=== PATIENT | female | born 1965 | race Caucasian/White ===

== ENCOUNTER → 2024-01-31 07:29 | Outpatient (REF) | payer OTHER, SELFPAY | LOC: MRI 3T 07:29 | PROVIDERS: ATTENDING PHYSICIAN Physician Assistant Surgical; FAMILY PHYSICIAN Family Medicine | DX: S32.000A Wedge compression fracture of unspecified lumbar vertebra, initial encounter for closed fracture (principal); M54.50 Low back pain, unspecified; S39.012A Strain of muscle, fascia and tendon of lower back, initial encounter | CPT/HCPCS: 72148 ==

== ENCOUNTER → 2024-05-08 11:42 | Outpatient (REF) | payer OTHER, SELFPAY | LOC: PAVMRI 11:42 | PROVIDERS: ATTENDING PHYSICIAN Physician Assistant Surgical; FAMILY PHYSICIAN Family Medicine | DX: S32.000A Wedge compression fracture of unspecified lumbar vertebra, initial encounter for closed fracture (principal); M54.50 Low back pain, unspecified | CPT/HCPCS: 72148 ==

== ENCOUNTER → 2024-06-03 07:25 | Outpatient (REF) | payer OTHER, SELFPAY | LOC: RAD 07:25 | PROVIDERS: ATTENDING PHYSICIAN Internal Medicine Critical Care Medicine; FAMILY PHYSICIAN Family Medicine | DX: F17.210 Nicotine dependence, cigarettes, uncomplicated (principal) | CPT/HCPCS: 71271 ==

== ENCOUNTER → 2024-12-30 08:33 | Outpatient (REF) | payer OTHER, SELFPAY | LOC: RAD 08:33 | PROVIDERS: ATTENDING PHYSICIAN Internal Medicine Endocrinology, Diabetes & Metabolism; FAMILY PHYSICIAN Family Medicine | DX: M81.0 Age-related osteoporosis without current pathological fracture (principal) | CPT/HCPCS: 77080 ==

== ENCOUNTER → 2025-06-04 07:46 | Outpatient (REF) | payer OTHER, SELFPAY | LOC: RAD 07:46 | PROVIDERS: ATTENDING PHYSICIAN Internal Medicine Critical Care Medicine; FAMILY PHYSICIAN Family Medicine | DX: F17.210 Nicotine dependence, cigarettes, uncomplicated (principal) | CPT/HCPCS: 71271 ==